=== PATIENT | male | born 1980 | race Caucasian/White ===

== ENCOUNTER 2020-12-20 11:56 | Emergency (ER) | payer MEDICAID, OTHER ==
[~2020-12-20] VITALS: Ht 182.9 cm; Wt 81.0 kg
[~2020-12-20 11:56] MED LIST: GABA-532 PO; ONDA4TAB59 PO
[2020-12-20 12:20] VITALS: BP 159/95
[2020-12-20] MEDS ORDERED: CHLO25CA10 PO (13:33)
[2020-12-20] MEDS ORDERED: ONDA4TAB6 PO (13:33)
[2020-12-20] MEDS ORDERED: ERYT1OIN6 LEFTEYE (13:39)
== END 2020-12-20 14:13 | disposition home or self-care (01) ==
LOC: ER 11:56
DX: Z02.89 Encounter for other administrative examinations (principal); H10.31 Unspecified acute conjunctivitis, right eye; R56.9 Unspecified convulsions; F15.90 Other stimulant use, unspecified, uncomplicated; F11.90 Opioid use, unspecified, uncomplicated; Z86.69 Personal history of other diseases of the nervous system and sense organs; Z72.89 Other problems related to lifestyle; Z56.0 Unemployment, unspecified; Z79.899 Other long term (current) drug therapy
CPT/HCPCS: 99283

== ENCOUNTER 2021-05-01 00:59 | Inpatient (IN) | payer MEDICAID ==
[~2021-05-01] VITALS: Ht 182.9 cm; Wt 57.6 kg
[~2021-05-01 00:59] MED LIST changes: +CHLO25CA10 PO; +ONDA4TAB6 PO
[2021-05-01 02:55] LABS: BASOPHILS # (AUTO) 0.1 X10'3 (0-0.2); BASOPHILS % (AUTO) 1.9 % (0-1); EOSINOPHILS # (AUTO) 0.1 X10'3 (0-0.9); EOSINOPHILS % (AUTO) 2.4 % (0-6); HEMATOCRIT 39.9 % (42.0-52.0); HEMOGLOBIN 13.4 g/dl (14.0-17.9); LYMPHOCYTES % (AUTO) 32.5 % (21-51); MEAN CORPUSCULAR HEMOGLOBIN 30.6 PG (27.0-31.0); MEAN CORPUSCULAR HGB CONC 33.7 g/dL (33.0-36.5); MEAN CORPUSCULAR VOLUME 90.7 FL (78-98); MEAN PLATELET VOLUME 7.5 FL (7.4-10.4); MONOCYTES # (AUTO) 0.3 X10'3 (0-0.9); NEUTROPHILS # (AUTO) 1.7 X10'3 (1.8-7.7); NEUTROPHILS % (AUTO) 54.2 % (42-75); PLATELET COUNT 218 X10'3 (140-440); RED BLOOD COUNT 4.39 X10'6 (4.70-6.10); RED CELL DISTRIBUTION WIDTH 14.6 % (11.5-14.5); WHITE BLOOD COUNT 3.2 X10'3 (4.5-11.0)
[2021-05-01 03:02] LABS: ALBUMIN 3.6 G/DL (3.4-5.0); ANION GAP 10 (8-16); BLOOD UREA NITROGEN 8 MG/DL (7-18); BUN/CREATININE RATIO 8.9 (5.4-32.0); CALCIUM 8.2 MG/DL (8.5-10.1); CHLORIDE 99 MMOL/L (99-107); GLUCOSE 86 MG/DL (70-104); POTASSIUM 3.7 MMOL/L (3.5-5.1); SODIUM 137 MMOL/L (135-145); TOTAL CARBON DIOXIDE 27.8 MMOL/L (24-32); eGFR > 90 ML/MIN
[2021-05-01] MEDS ORDERED: LORazepam 2 mg/ml vial IV ONE ×2 (03:25→05:05)
[2021-05-01] MEDS ORDERED: thiamine 100mg/ml 2ml inj. IV ONE (04:05)
[2021-05-01] MEDS ORDERED: ondansetron/PF 4mg/2ml inj IV ONE (04:40)
[2021-05-01] MEDS ORDERED: magnesium 4gm in 100ml NS 100 ML IV PRN (05:10)
[2021-05-01] MEDS ORDERED: acetaminophen 325mg tablet PO PRN ×2 (05:10)
[2021-05-01] MEDS ORDERED: haloperidol lactate 5mg/ml inj IM PRN (05:10)
[2021-05-01] MEDS ORDERED: normal saline 1000ml 1,000 ML IV SCH (05:10)
[2021-05-01] MEDS ORDERED: haloperidol 5mg tablet PO PRN (05:10)
[2021-05-01] MEDS ORDERED: LORazepam 2 mg/ml vial IV PRN ×3 (05:10→19:05)
[2021-05-01] MEDS ORDERED: magnesium Cl slow-release 64mg tablet PO PRN (05:10)
[2021-05-01] MEDS ORDERED: mag hydrox/Alum hydrox/simeth 30ml oral suspension PO PRN (05:10)
[2021-05-01] MEDS ORDERED: potassium CL 10mEq/100ml bag 100 ML IV PRN (05:10)
[2021-05-01] MEDS ORDERED: potassium Cl 20 mEq SR tablet PO PRN ×2 (05:10)
[2021-05-01] MEDS ORDERED: magnesium hydroxide 30ml (MOM) UD suspension PO PRN (05:10)
[2021-05-01] MEDS ORDERED: ondansetron/PF 4mg/2ml inj IV PRN (05:10)
[2021-05-01] MEDS ORDERED: dextrose 50%-water 50ml dispensing syringe IV PRN (05:10)
[2021-05-01] MEDS ORDERED: magnesium 2GM in 50ml NS 50 ML IV PRN (05:10)
--- NOTE | 2021-05-01 06:20 | NUR ---
Report received from LEONELA Christine; assumed care for patient.
--- NOTE | 2021-05-01 06:35 | NUR ---
Patient resting quietly; appears to be sleeping; even chest rise and fall; no apparent distress.
[2021-05-01] MEDS ORDERED: K and/or MAG REPLACEMENT MC SCH (08:00)
[2021-05-01] MEDS: thiamine 100mg/ml 2ml inj. IV SCH ×3 (10:30→19:16)
[2021-05-01] MEDS: heparin, porcine 5000 units/ml vial SQ SCH ×2 (10:31→19:16)
[2021-05-01] MEDS: folic acid 1mg/0.2ml inj IV SCH (12:46)
[2021-05-01] MEDS ORDERED: ATOR20TA66 PO (18:02)
[2021-05-01] MEDS ORDERED: LISI5TAB22 PO (18:02)
[2021-05-01 18:40] VITALS: BP 136/81
[2021-05-01] MEDS: normal saline 1000ml 1,000 ML IV SCH (19:04)
[2021-05-01] MEDS: LORazepam 2 mg/ml vial IV PRN (19:47)
[2021-05-01] MEDS ORDERED: temazepam 15mg capsule PO PRN (21:00)
[2021-05-01 22:00] VITALS: BP 134/78
[2021-05-02 02:00] VITALS: BP 184/70
[2021-05-02] MEDS: LORazepam 2 mg/ml vial IV PRN ×4 (02:18→08:48)
[2021-05-02 06:00] VITALS: BP 155/90
[2021-05-02 06:02] LABS: BASOPHILS # (AUTO) 0.1 X10'3 (0-0.2); BASOPHILS % (AUTO) 1.4 % (0-1); EOSINOPHILS # (AUTO) 0.1 X10'3 (0-0.9); EOSINOPHILS % (AUTO) 3.4 % (0-6); HEMOGLOBIN 13.8 g/dl (14.0-17.9); LYMPHOCYTES # (AUTO) 1.1 X10'3 (1.1-4.8); LYMPHOCYTES % (AUTO) 28.2 % (21-51); MEAN CORPUSCULAR HEMOGLOBIN 30.9 PG (27.0-31.0); MEAN CORPUSCULAR HGB CONC 33.6 g/dL (33.0-36.5); MEAN CORPUSCULAR VOLUME 91.8 FL (78-98); MONOCYTES # (AUTO) 0.4 X10'3 (0-0.9); NEUTROPHILS # (AUTO) 2.3 X10'3 (1.8-7.7); PLATELET COUNT 211 X10'3 (140-440); RED BLOOD COUNT 4.47 X10'6 (4.70-6.10); RED CELL DISTRIBUTION WIDTH 14.1 % (11.5-14.5); WHITE BLOOD COUNT 3.9 X10'3 (4.5-11.0)
[2021-05-02 06:05] LABS: ALANINE AMINOTRANSFERASE 37 U/L (12-78); ALBUMIN 3.5 G/DL (3.4-5.0); ALBUMIN/GLOBULIN RATIO 1.1 (1.1-1.5); ALKALINE PHOSPHATASE 63 IU/L (46-116); ANION GAP 6 (8-16); ASPARTATE AMINO TRANSFERASE 35 U/L (10-37); BLOOD UREA NITROGEN 10 MG/DL (7-18); BUN/CREATININE RATIO 10.4 (5.4-32.0); CALCIUM 8.3 MG/DL (8.5-10.1); CHLORIDE 101 MMOL/L (99-107); CREATININE 0.96 MG/DL (0.60-1.10); GLUCOSE 82 MG/DL (70-104); MAGNESIUM 1.7 MG/DL (1.5-2.4); POTASSIUM 3.9 MMOL/L (3.5-5.1); SODIUM 139 MMOL/L (135-145); TOTAL CARBON DIOXIDE 31.7 MMOL/L (24-32); TOTAL PROTEIN 6.7 G/DL (6.4-8.2); eGFR 85 ML/MIN
--- NOTE | 2021-05-02 06:19 | NUR ---
Problems reprioritized. Patient report given, questions answered & plan of care reviewed with Nate Addendum: 05/02/21 at 0620 by Abdirahman Son RN Amended: Links added.
[2021-05-02] MEDS: heparin, porcine 5000 units/ml vial SQ SCH (07:37)
[2021-05-02] MEDS: thiamine 100mg/ml 2ml inj. IV SCH ×2 (07:37→13:14)
[2021-05-02] MEDS: normal saline 1000ml 1,000 ML IV SCH (07:38)
[2021-05-02] MEDS: folic acid 1mg/0.2ml inj IV SCH (07:38)
[2021-05-02] MEDS ORDERED: FOLI0.4T6 PO (11:40)
[2021-05-02] MEDS ORDERED: MULT-1219 PO (11:41)
[2021-05-02] MEDS ORDERED: OMEP20CA15 PO (11:41)
[2021-05-02] MEDS ORDERED: THIA50TA10 PO (11:41)
--- NOTE | 2021-05-02 13:03 | NUR ---
Page Sent: PAGER ID: [phone] MESSAGE: [id number]. Delmar Kirby. patient has DC orders, he was under the impression he was getting a referral for [facility]. also wanted an Rx for conjunctivitis. please adv. will send him out once I hear from you
[2021-05-03] MEDS ORDERED: LORazepam 2 mg/ml vial IV PRN ×2 (05:10→19:05)
[2021-05-03] MEDS ORDERED: LORazepam 1 MG tablet PO PRN ×2 (05:10→19:05)
[2021-05-05] MEDS ORDERED: LORazepam 1 MG tablet PO PRN (05:10)
[2021-05-05] MEDS ORDERED: LORazepam 2 mg/ml vial IV PRN (05:10)
== END 2021-05-02 13:40 | disposition home or self-care (01) | DRG 773 ==
LOC: ER 01:01 → UNDOADMIN 05:06 → ED HOLD 05:06 → PCU 3S 07:40 → ED HOLD 07:40 → UNDODISIN 05-02 13:40
PROVIDERS: ADMIT Internal Medicine; ATTEND Family Medicine
DX: F10.231 Alcohol dependence with withdrawal delirium (principal); F11.90 Opioid use, unspecified, uncomplicated; Z20.822 Contact with and (suspected) exposure to COVID-19; Z56.0 Unemployment, unspecified; Z71.41 Alcohol abuse counseling and surveillance of alcoholic
CPT/HCPCS: 36415; 80048; 80053; 83735; 85025; 85610; 87635; 96374; 96375; 99285; C9803; G0378; J1644; J2060; J3411; J3490; J7030

== ENCOUNTER 2021-05-14 04:27 | Emergency (ER) | payer MEDICAID ==
[~2021-05-14] VITALS: Ht 182.9 cm; Wt 83.7 kg
[~2021-05-14 04:27] MED LIST changes: +ATOR20TA66 PO; -CHLO25CA10 PO; +FOLI0.4T6 PO; -GABA-532 PO; +LISI5TAB22 PO; +MULT-1219 PO; +OMEP20CA15 PO; -ONDA4TAB59 PO; -ONDA4TAB6 PO; +THIA50TA10 PO
[2021-05-14 05:11] VITALS: BP 137/93
== END 2021-05-14 11:52 | disposition left against medical advice (07) ==
LOC: ER 04:28
DX: F10.129 Alcohol abuse with intoxication, unspecified (principal); Z53.21 Procedure and treatment not carried out due to patient leaving prior to being seen by health care provider; Y90.9 Presence of alcohol in blood, level not specified

== ENCOUNTER 2021-12-08 09:00 | Inpatient (IN) | payer MEDICAID ==
[~2021-12-08] VITALS: Ht 182.9 cm; Wt 78.0 kg
[~2021-12-08 09:00] MED LIST changes: -FOLI0.4T6 PO
[2021-12-08] MEDS ORDERED: LORazepam 2 mg/ml vial ONE (15:16)
[2021-12-08] MEDS ORDERED: ringers solution, lacted 1,000 ML IV ONE ×2 (15:25→16:55)
[2021-12-08] MEDS ORDERED: normal saline 1000ML IV soln IVB ONE (15:25)
--- NOTE | 2021-12-08 15:25 | NUR ---
RN returned from lunch break. Pt diaphoretic, just had fall, disoriented, restless.
[2021-12-08 15:38] LABS: BASOPHILS # (AUTO) 0.2 X10'3 (0-0.2); BASOPHILS % (AUTO) 1.3 % (0-1); EOSINOPHILS % (AUTO) 0.3 % (0-6); HEMATOCRIT 46.5 % (42.0-52.0); HEMOGLOBIN 14.8 g/dl (14.0-17.9); LYMPHOCYTES # (AUTO) 3.5 X10'3 (1.1-4.8); MEAN CORPUSCULAR HEMOGLOBIN 29.8 PG (27.0-31.0); MEAN CORPUSCULAR HGB CONC 31.9 g/dL (33.0-36.5); MEAN CORPUSCULAR VOLUME 93.5 FL (78-98); MEAN PLATELET VOLUME 7.9 FL (7.4-10.4); MONOCYTES # (AUTO) 0.9 X10'3 (0-0.9); MONOCYTES % (AUTO) 6.3 % (2-12); NEUTROPHILS # (AUTO) 9.9 X10'3 (1.8-7.7); NEUTROPHILS % (AUTO) 68.1 % (42-75); PLATELET COUNT 241 X10'3 (140-440); RED BLOOD COUNT 4.98 X10'6 (4.70-6.10); RED CELL DISTRIBUTION WIDTH 14.7 % (11.5-14.5); WHITE BLOOD COUNT 14.6 X10'3 (4.5-11.0)
[2021-12-08 15:51] LABS: ALANINE AMINOTRANSFERASE 41 U/L (12-78); ALBUMIN 4.3 G/DL (3.4-5.0); ALKALINE PHOSPHATASE 121 IU/L (46-116); ANION GAP 30 (8-16); ASPARTATE AMINO TRANSFERASE 33 U/L (10-37); BILIRUBIN,TOTAL 1.5 MG/DL (0.1-1.0); BLOOD UREA NITROGEN 14 MG/DL (7-18); BUN/CREATININE RATIO 11.2 (5.4-32.0); CALCIUM 9.1 MG/DL (8.5-10.1); CHLORIDE 94 MMOL/L (99-107); CREATININE 1.25 MG/DL (0.60-1.10); ETHANOL < 0.010 GM/DL (0.0-0.010); GLUCOSE 152 MG/DL (70-104); MAGNESIUM 1.9 MG/DL (1.5-2.4); SODIUM 137 MMOL/L (135-145); TOTAL PROTEIN 8.5 G/DL (6.4-8.2); eGFR 63 ML/MIN
[2021-12-08 15:57] LABS: PLATELET ESTIMATE NORMAL; TOTAL CELLS COUNTED 100
[2021-12-08 16:01] LABS: TOTAL CARBON DIOXIDE 13.3 MMOL/L (24-32)
[2021-12-08] MEDS ORDERED: potassium Cl 10 mEq/100mL bag IV ONE (16:15)
[2021-12-08 17:36] LABS: CLARITY,URINE CLEAR (Clear); COLOR,URINE YELLOW (Yellow); GLUCOSE, URINE NEGATIVE (Neg); KETONES,URINE 40 mg/dl (Neg); LEUKOCYTE ESTERASE ,URINE NEGATIVE (Neg); NITRITES, URINE NEGATIVE (Neg); OCCULT BLOOD,URINE MODERATE (Neg); PROTEIN,URINE 100 mg/dl (Neg); UROBILINOGEN,URINE 0.2 E.U/dL (0.2-1.0)
[2021-12-08 17:42] LABS: UA COLLECTION TYPE URINAL
[2021-12-08 17:47] LABS: BACTERIA,URINE NONE SEEN /HPF (Neg); HYALINE CASTS 0-3 /LPF (NEGATIVE); MUCUS STRANDS NONE SEEN /LPF (Neg); RBC,URINE NONE SEEN /HPF (0-2); SQUAMOUS EPITHELIAL CELL,UR FEW /LPF (FEW); WBC,URINE NONE SEEN /HPF (0-4)
[2021-12-08 17:55] LABS: URINE AMPHETAMINE SCREEN NEGATIVE (Neg); URINE BARBITUATE SCREEN NEGATIVE (Neg); URINE BENZODIAZEPINES SCREEN NEGATIVE (Neg); URINE CANNABINOID SCREEN NEGATIVE (Neg); URINE COCAINE SCREEN NEGATIVE (Neg); URINE METHADONE SCREEN NEGATIVE (Neg); URINE OPIATE SCREEN NEGATIVE (Neg); URINE PHENCYCLIDINE SCREEN NEGATIVE (Neg)
[2021-12-08] MEDS ORDERED: folic acid 1mg/0.2ml inj IV ONE (18:20)
[2021-12-08] MEDS ORDERED: dextrose 5%-1/2 normal saline 1,000 ML IV ONE (18:20)
[2021-12-08] MEDS ORDERED: thiamine 100mg/ml 2ml inj. IV ONE (18:20)
--- NOTE | 2021-12-08 23:15 | NUR ---
Patient in room PCU 3027. I have received report from NCIOLLE GIPSON and had the opportunity to ask questions and will assume patient care when patient arrives on the unit.
[2021-12-08 23:45] VITALS: BP 121/60
[2021-12-09] MEDS ORDERED: OMEP20CA16 PO (00:12)
[2021-12-09] MEDS ORDERED: MULT-1085 PO (00:12)
[2021-12-09] MEDS ORDERED: THIA100T66 PO (00:12)
[2021-12-09] MEDS ORDERED: magnesium 4gm in 100ml NS 100 ML IV PRN (00:45)
[2021-12-09] MEDS ORDERED: potassium CL 10mEq/100ml bag 100 ML IV PRN (00:45)
[2021-12-09] MEDS ORDERED: acetaminophen 325mg tablet PO PRN ×2 (00:45)
[2021-12-09] MEDS ORDERED: LORazepam 2 mg/ml vial IV PRN (00:45)
[2021-12-09] MEDS ORDERED: acetaminophen 650mg rectal suppository RC PRN (00:45)
[2021-12-09] MEDS ORDERED: magnesium Cl slow-release 64mg tablet PO PRN (00:45)
[2021-12-09] MEDS ORDERED: magnesium 2GM in 50ml NS 50 ML IV PRN (00:45)
[2021-12-09] MEDS ORDERED: diphenhydrAMINE 25mg capsule PO PRN (00:45)
[2021-12-09] MEDS ORDERED: bisacodyl 10mg suppository rectal RC PRN (00:45)
[2021-12-09] MEDS ORDERED: diphenhydrAMINE 50 mg/ml inj IV PRN (00:45)
[2021-12-09] MEDS ORDERED: magnesium hydroxide 30ml (MOM) UD suspension PO PRN (00:45)
[2021-12-09] MEDS ORDERED: dextrose 50%-water 50ml dispensing syringe IV PRN (00:45)
[2021-12-09] MEDS ORDERED: ondansetron 4mg rapidly disintigrating tab PO PRN (00:45)
[2021-12-09] MEDS ORDERED: mag hydrox/Alum hydrox/simeth 30ml oral suspension PO PRN (00:45)
[2021-12-09] MEDS ORDERED: HYDROcodone/acetaminophen 5mg/325mg tablet PO PRN (00:45)
[2021-12-09] MEDS ORDERED: ondansetron/PF 4mg/2ml inj IV PRN (00:45)
[2021-12-09] MEDS ORDERED: haloperidol lactate 5mg/ml inj IM PRN (00:45)
[2021-12-09] MEDS: morphine 2 MG/ML inj. syringe IV PRN ×4 (01:08→20:48)
[2021-12-09] MEDS: POTASSIUM BICARB 20meq eff tab 20 MEQ TABLET.EFF PO PRN ×3 (01:10→17:20)
[2021-12-09] MEDS: potassium cl 20mEq in 1/2 NS 1,000 ML IV SCH ×3 (02:30→20:45)
[2021-12-09 03:15] LABS: ABG BASE EXCESS 2.8 mmol/L (-2.0-2.0); ABG HCO3 25.5 mmol/L (22.0-26.0); ABG OXYGEN SATURATION 95.3 % (94-97); ABG PCO2 (T) 33.5 mmHg (35.0-48.0); ABG PO2 (T) 73.1 mmHg (75.0-100.0); ALLEN'S TEST POSITIVE; FMetHb 0.4 % (0.0-1.5); TOTAL HEMOGLOBIN 14.1 G/dl (14.0-18.0)
[2021-12-09 06:00] VITALS: BP 152/71
--- NOTE | 2021-12-09 06:22 | NUR ---
Problems reprioritized. Patient report given, questions answered & plan of care reviewed with LARISA GIPSON.
[2021-12-09 06:24] LABS: HEMOGLOBIN A1C 5.4 % (4.5-6.2)
[2021-12-09 06:30] LABS: APTT 29 SECONDS (22-32)
[2021-12-09 07:05] LABS: CREATINE KINASE 636 U/L (39-308); LIPASE 183 U/L (73-393); PHOSPHORUS 2.3 MG/DL (2.3-4.5); POTASSIUM 3.4 MMOL/L (3.5-5.1)
--- NOTE | 2021-12-09 07:08 | NUR ---
Patient in room PCU 3027. I have received report from LEONELA Diaz and had the opportunity to ask questions and assume patient care.
--- NOTE | 2021-12-09 07:59 | NUR ---
Paged Dr Lopez Message: [id number], Kofi, Needs valium steve for [facility] out of Ativan IV. Bhavana, [phone], TY
[2021-12-09] MEDS: thiamine 100mg/ml 2ml inj. IV SCH ×3 (08:06→20:47)
[2021-12-09] MEDS: docusate sod 100mg capsule PO SCH ×2 (08:08→19:13)
[2021-12-09] MEDS: nicotine 21mg patch - 24 hr TD SCH (08:09)
[2021-12-09] MEDS: heparin, porcine 5000 units/ml vial SQ SCH ×2 (08:10→19:13)
[2021-12-09] MEDS: K and/or MAG REPLACEMENT MC SCH ×2 (08:11→19:09)
[2021-12-09] MEDS: folic acid 1mg/0.2ml inj IV SCH (09:23)
--- NOTE | 2021-12-09 10:22 | NUR ---
Wound consult: Per RN/[employer]IMARY [employer]CHO[employer]INCIPAL skin assessment pt with bilat heel blisters and right elbow abrasions. Pending documentation of PO intake on regular diet. Will continue to follow and make recommendations as appropriate pending trends in PO intake. Addendum: 12/09/21 at [address] Amended: Links added.
[2021-12-09 11:32] VITALS: BP 146/85
[2021-12-09 11:57] LABS: ALBUMIN 3.1 G/DL (3.4-5.0); ANION GAP 7 (8-16); BLOOD UREA NITROGEN 7 MG/DL (7-18); CALCIUM 8.2 MG/DL (8.5-10.1); CHLORIDE 99 MMOL/L (99-107); CREATININE 0.78 MG/DL (0.60-1.10); GLUCOSE 95 MG/DL (70-104); POTASSIUM 3.7 MMOL/L (3.5-5.1); SODIUM 137 MMOL/L (135-145); TOTAL CARBON DIOXIDE 30.8 MMOL/L (24-32); eGFR > 90 ML/MIN
[2021-12-09] MEDS: diazepam inj 5 MG/ML inj. IV PRN ×3 (12:03→23:37)
[2021-12-09 17:00] VITALS: BP 166/94
[2021-12-09] MEDS: LIDOcaine Viscous 15ml cup MM PRN (17:20)
[2021-12-09] MEDS: HYDROcodone/acetaminophen 10/325mg tab PO PRN ×2 (17:20→23:38)
--- NOTE | 2021-12-09 17:30 | NUR ---
Pt experienced severe pain throughout the shift, received norco po x2, and morphine IV. Pt having withdrawals, received valium 5 mg IV x1. REceived lidocaine mouth wash, swish and spit, x 1, for severe sores in mouth that occurred when he had seizure in the ED. States the lidocaine made mouth feel better.
[2021-12-09 18:00] VITALS: BP 155/102
--- NOTE | 2021-12-09 18:45 | NUR ---
Problems reprioritized. Patient report given, questions answered & plan of care reviewed with LEONELA Diaz.
[2021-12-09 22:00] VITALS: BP 140/84
[2021-12-10] MEDS: potassium cl 20mEq in 1/2 NS 1,000 ML IV SCH ×3 (00:30→22:12)
[2021-12-10] MEDS: LIDOcaine Viscous 15ml cup MM PRN ×2 (00:33→17:06)
[2021-12-10 02:00] VITALS: BP 153/83
[2021-12-10] MEDS: morphine 2 MG/ML inj. syringe IV PRN ×3 (03:15→20:04)
[2021-12-10] MEDS: diazepam inj 5 MG/ML inj. IV PRN ×3 (05:00→22:12)
[2021-12-10] MEDS: HYDROcodone/acetaminophen 10/325mg tab PO PRN ×3 (05:01→16:59)
[2021-12-10 06:00] VITALS: BP 139/77
[2021-12-10 06:41] LABS: BASOPHILS % (AUTO) 0.6 % (0-1); EOSINOPHILS # (AUTO) 0.2 X10'3 (0-0.9); EOSINOPHILS % (AUTO) 3.9 % (0-6); HEMATOCRIT 39.2 % (42.0-52.0); HEMOGLOBIN 13.4 g/dl (14.0-17.9); LYMPHOCYTES # (AUTO) 1.5 X10'3 (1.1-4.8); LYMPHOCYTES % (AUTO) 24.3 % (21-51); MEAN CORPUSCULAR HEMOGLOBIN 31.1 PG (27.0-31.0); MEAN CORPUSCULAR HGB CONC 34.2 g/dL (33.0-36.5); MEAN PLATELET VOLUME 8.5 FL (7.4-10.4); MONOCYTES # (AUTO) 0.6 X10'3 (0-0.9); MONOCYTES % (AUTO) 9.9 % (2-12); NEUTROPHILS # (AUTO) 3.8 X10'3 (1.8-7.7); NEUTROPHILS % (AUTO) 61.3 % (42-75); PLATELET COUNT 134 X10'3 (140-440); RED BLOOD COUNT 4.31 X10'6 (4.70-6.10); RED CELL DISTRIBUTION WIDTH 13.9 % (11.5-14.5); WHITE BLOOD COUNT 6.2 X10'3 (4.5-11.0)
--- NOTE | 2021-12-10 06:44 | NUR ---
Problems reprioritized. Patient report given, questions answered & plan of care reviewed with LARISA GIPSON.
[2021-12-10 07:03] LABS: ALANINE AMINOTRANSFERASE 34 U/L (12-78); ALBUMIN/GLOBULIN RATIO 0.9 (1.1-1.5); ALKALINE PHOSPHATASE 76 IU/L (46-116); ANION GAP 8 (8-16); ASPARTATE AMINO TRANSFERASE 31 U/L (10-37); BILIRUBIN,TOTAL 0.7 MG/DL (0.1-1.0); BLOOD UREA NITROGEN 8 MG/DL (7-18); BUN/CREATININE RATIO 10.3 (5.4-32.0); CALCIUM 8.2 MG/DL (8.5-10.1); CHLORIDE 100 MMOL/L (99-107); CREATININE 0.78 MG/DL (0.60-1.10); GLUCOSE 130 MG/DL (70-104); MAGNESIUM 1.8 MG/DL (1.5-2.4); POTASSIUM 3.3 MMOL/L (3.5-5.1); SODIUM 137 MMOL/L (135-145); TOTAL CARBON DIOXIDE 29.3 MMOL/L (24-32); TOTAL PROTEIN 6.5 G/DL (6.4-8.2); eGFR > 90 ML/MIN
[2021-12-10] MEDS: K and/or MAG REPLACEMENT MC SCH ×2 (08:00→20:00)
[2021-12-10] MEDS: heparin, porcine 5000 units/ml vial SQ SCH ×2 (08:00→20:05)
[2021-12-10] MEDS: lisinopril 5mg tablet PO SCH (09:28)
[2021-12-10] MEDS: nicotine 21mg patch - 24 hr TD SCH (09:28)
[2021-12-10] MEDS: multivitamins, therapeutics tablet PO SCH (09:28)
[2021-12-10] MEDS: thiamine 100mg/ml 2ml inj. IV SCH ×3 (09:29→20:04)
[2021-12-10] MEDS: docusate sod 100mg capsule PO SCH ×2 (09:29→20:05)
[2021-12-10] MEDS: atorvastatin 20mg tablet PO SCH (09:29)
[2021-12-10] MEDS: pantoprazole 40mg Tablet.DR PO SCH (09:29)
[2021-12-10] MEDS: folic acid 1mg/0.2ml inj IV SCH (09:43)
[2021-12-10 11:00] VITALS: BP 156/94
[2021-12-10] MEDS: POTASSIUM BICARB 20meq eff tab 20 MEQ TABLET.EFF PO PRN ×2 (12:18→16:59)
[2021-12-10] MEDS: haloperidol 5mg tablet PO PRN (12:19)
[2021-12-10 12:38] LABS: CREATINE KINASE 587 U/L (39-308)
[2021-12-10 15:00] VITALS: BP 115/74
--- NOTE | 2021-12-10 16:49 | NUR ---
To Dr Lopez Message: [id number], Kirby, I have not seen order for CT Back we discussed. Bhavana GIPSON, [phone], TY
[2021-12-10] MEDS: lactose-reduced food (Ensure Enlive) - 237ml bottle PO SCH (18:00)
[2021-12-10 20:16] VITALS: BP 146/83
[2021-12-10 22:06] VITALS: BP 146/85
[2021-12-11] VITALS (8 sets, daily range): BP systolic 122–155; BP diastolic 73–88
[2021-12-11] MEDS ORDERED: LORazepam 1 MG tablet PO PRN (00:45)
[2021-12-11] MEDS ORDERED: LORazepam 2 mg/ml vial IV PRN (00:45)
[2021-12-11] MEDS: diazepam inj 5 MG/ML inj. IV PRN ×3 (02:08→17:43)
[2021-12-11] MEDS ORDERED: TADA5TAB2 PO (03:22)
[2021-12-11] MEDS ORDERED: ALBU8.5H17 INH (03:32)
[2021-12-11] MEDS: morphine 2 MG/ML inj. syringe IV PRN ×3 (05:37→22:11)
[2021-12-11 05:49] LABS: BASOPHILS % (AUTO) 0.7 % (0-1); EOSINOPHILS # (AUTO) 0.2 X10'3 (0-0.9); EOSINOPHILS % (AUTO) 3.7 % (0-6); HEMATOCRIT 42.2 % (42.0-52.0); HEMOGLOBIN 14.2 g/dl (14.0-17.9); LYMPHOCYTES # (AUTO) 1.6 X10'3 (1.1-4.8); LYMPHOCYTES % (AUTO) 24.5 % (21-51); MEAN CORPUSCULAR HEMOGLOBIN 30.6 PG (27.0-31.0); MEAN CORPUSCULAR HGB CONC 33.6 g/dL (33.0-36.5); MEAN PLATELET VOLUME 8.4 FL (7.4-10.4); MONOCYTES # (AUTO) 0.7 X10'3 (0-0.9); MONOCYTES % (AUTO) 10.8 % (2-12); NEUTROPHILS # (AUTO) 3.8 X10'3 (1.8-7.7); NEUTROPHILS % (AUTO) 60.3 % (42-75); PLATELET COUNT 145 X10'3 (140-440); RED BLOOD COUNT 4.63 X10'6 (4.70-6.10); WHITE BLOOD COUNT 6.4 X10'3 (4.5-11.0)
[2021-12-11] MEDS: LIDOcaine Viscous 15ml cup MM PRN ×2 (05:54→17:43)
[2021-12-11 05:59] LABS: ALANINE AMINOTRANSFERASE 31 U/L (12-78); ALBUMIN 3.1 G/DL (3.4-5.0); ALBUMIN/GLOBULIN RATIO 0.8 (1.1-1.5); ALKALINE PHOSPHATASE 72 IU/L (46-116); ANION GAP 4 (8-16); ASPARTATE AMINO TRANSFERASE 22 U/L (10-37); BILIRUBIN,TOTAL 0.7 MG/DL (0.1-1.0); BLOOD UREA NITROGEN 7 MG/DL (7-18); BUN/CREATININE RATIO 9.2 (5.4-32.0); CALCIUM 8.7 MG/DL (8.5-10.1); CHLORIDE 99 MMOL/L (99-107); CREATININE 0.76 MG/DL (0.60-1.10); GLUCOSE 106 MG/DL (70-104); PHOSPHORUS 3.4 MG/DL (2.3-4.5); POTASSIUM 3.9 MMOL/L (3.5-5.1); SODIUM 134 MMOL/L (135-145); TOTAL CARBON DIOXIDE 30.9 MMOL/L (24-32); TOTAL PROTEIN 6.8 G/DL (6.4-8.2); eGFR > 90 ML/MIN
--- NOTE | 2021-12-11 06:40 | NUR ---
Problems reprioritized. Patient report given, questions answered & plan of care reviewed with LEONELA Bateman.
[2021-12-11] MEDS: HYDROcodone/acetaminophen 10/325mg tab PO PRN ×3 (07:58→18:46)
[2021-12-11] MEDS: K and/or MAG REPLACEMENT MC SCH ×2 (08:00→20:00)
[2021-12-11] MEDS: lactose-reduced food (Ensure Enlive) - 237ml bottle PO SCH ×3 (08:00→18:49)
[2021-12-11] MEDS: potassium cl 20mEq in 1/2 NS 1,000 ML IV SCH ×2 (09:00→18:47)
[2021-12-11] MEDS: pantoprazole 40mg Tablet.DR PO SCH (09:01)
[2021-12-11] MEDS: heparin, porcine 5000 units/ml vial SQ SCH ×2 (09:01→19:02)
[2021-12-11] MEDS: multivitamins, therapeutics tablet PO SCH (09:02)
[2021-12-11] MEDS: lisinopril 5mg tablet PO SCH (09:02)
[2021-12-11] MEDS: docusate sod 100mg capsule PO SCH ×2 (09:02→19:02)
[2021-12-11] MEDS: atorvastatin 20mg tablet PO SCH (09:02)
[2021-12-11] MEDS: thiamine 100mg/ml 2ml inj. IV SCH ×2 (09:03→12:12)
[2021-12-11] MEDS: folic acid 1mg/0.2ml inj IV SCH (09:03)
[2021-12-11] MEDS: nicotine 21mg patch - 24 hr TD SCH (09:03)
--- NOTE | 2021-12-11 10:39 | NUR ---
Met with patient in regards to alcohol use and to see if patient was interested in resources for treatment options. Patient is interested in treatment options. I gave patient [facility] number to call and get process started. I also gave a list of resources and my card to call me with any questions.
--- NOTE | 2021-12-11 17:45 | NUR ---
Pt continues to experience pain and withdrawals. Pt given morphine IV 2x this shift, [place] 10 PO 2x this shift, and valium 5 mg IV x2 for withdrawals, scoring >10 on assessment, but <15.
--- NOTE | 2021-12-11 18:42 | NUR ---
Problems reprioritized. Patient report given, questions answered & plan of care reviewed with LEONELA Ulloa. At 1755 pt HR increased to 130's, checked on patient, pt has been on the phone dealing with personal issues. He was also moving in bed, sitting up to eat dinner. continues to have pain, increasing with movement.
[2021-12-11] MEDS: haloperidol 5mg tablet PO PRN (19:46)
--- NOTE | 2021-12-11 21:54 | NUR ---
Dr Melendez ordered patient's albuterol sulfate for wheezing PRN as per the patient's reported Med Rec.
[2021-12-11] MEDS ORDERED: ALBUTEROL INHALER 1 PUFF/90 MCG INHALation IH PRN (21:55)
[2021-12-11] MEDS ORDERED: albuterol 2.5 MG/3 ML nebule NEB PRN (22:00)
[2021-12-12] VITALS (7 sets, daily range): BP systolic 115–147; BP diastolic 64–94
[2021-12-12] MEDS: diazepam inj 5 MG/ML inj. IV PRN (01:13)
[2021-12-12] MEDS: thiamine 100mg/ml 2ml inj. IV SCH (01:25)
--- NOTE | 2021-12-12 01:25 | NUR ---
sPOKE WITH PHARMACIST OK TO GIVE THIAMINE NOW THAT WAS SCHEDULED FOR 2100
[2021-12-12] MEDS: haloperidol 5mg tablet PO PRN (04:37)
[2021-12-12] MEDS: potassium cl 20mEq in 1/2 NS 1,000 ML IV SCH ×2 (05:03→21:46)
[2021-12-12 06:42] LABS: BASOPHILS % (AUTO) 0.7 % (0-1); EOSINOPHILS # (AUTO) 0.2 X10'3 (0-0.9); EOSINOPHILS % (AUTO) 4.1 % (0-6); HEMATOCRIT 41.7 % (42.0-52.0); LYMPHOCYTES # (AUTO) 1.4 X10'3 (1.1-4.8); LYMPHOCYTES % (AUTO) 23.8 % (21-51); MEAN CORPUSCULAR HEMOGLOBIN 30.5 PG (27.0-31.0); MEAN CORPUSCULAR HGB CONC 33.5 g/dL (33.0-36.5); MEAN CORPUSCULAR VOLUME 91.2 FL (78-98); MEAN PLATELET VOLUME 8.1 FL (7.4-10.4); MONOCYTES # (AUTO) 0.9 X10'3 (0-0.9); MONOCYTES % (AUTO) 14.2 % (2-12); NEUTROPHILS # (AUTO) 3.5 X10'3 (1.8-7.7); NEUTROPHILS % (AUTO) 57.2 % (42-75); PLATELET COUNT 153 X10'3 (140-440); RED BLOOD COUNT 4.57 X10'6 (4.70-6.10); RED CELL DISTRIBUTION WIDTH 14.3 % (11.5-14.5); WHITE BLOOD COUNT 6.1 X10'3 (4.5-11.0)
--- NOTE | 2021-12-12 06:45 | NUR ---
Problems reprioritized. Patient report given, questions answered & plan of care reviewed with LEONELA Robles.
--- NOTE | 2021-12-12 06:46 | NUR ---
Patient in room PCU 3027. I have received report from jessica lazo and had the opportunity to ask questions and assume patient care.
[2021-12-12 06:55] LABS: ALANINE AMINOTRANSFERASE 34 U/L (12-78); ALBUMIN 3.2 G/DL (3.4-5.0); ALBUMIN/GLOBULIN RATIO 0.8 (1.1-1.5); ALKALINE PHOSPHATASE 75 IU/L (46-116); ANION GAP 7 (8-16); ASPARTATE AMINO TRANSFERASE 25 U/L (10-37); BILIRUBIN,TOTAL 0.5 MG/DL (0.1-1.0); BLOOD UREA NITROGEN 10 MG/DL (7-18); BUN/CREATININE RATIO 11.1 (5.4-32.0); CHLORIDE 100 MMOL/L (99-107); GLUCOSE 103 MG/DL (70-104); MAGNESIUM 1.9 MG/DL (1.5-2.4); PHOSPHORUS 4.8 MG/DL (2.3-4.5); POTASSIUM 3.9 MMOL/L (3.5-5.1); SODIUM 137 MMOL/L (135-145); TOTAL CARBON DIOXIDE 30.4 MMOL/L (24-32); eGFR > 90 ML/MIN
[2021-12-12] MEDS: K and/or MAG REPLACEMENT MC SCH ×2 (07:46→20:00)
[2021-12-12] MEDS: pantoprazole 40mg Tablet.DR PO SCH (07:52)
[2021-12-12] MEDS: multivitamins, therapeutics tablet PO SCH (07:52)
[2021-12-12] MEDS: atorvastatin 20mg tablet PO SCH (07:52)
[2021-12-12] MEDS: docusate sod 100mg capsule PO SCH ×2 (07:52→20:00)
[2021-12-12] MEDS: nicotine 21mg patch - 24 hr TD SCH (07:53)
[2021-12-12] MEDS: lisinopril 5mg tablet PO SCH (07:53)
[2021-12-12] MEDS: heparin, porcine 5000 units/ml vial SQ SCH ×2 (07:53→21:44)
[2021-12-12] MEDS: HYDROcodone/acetaminophen 10/325mg tab PO PRN ×4 (07:57→21:47)
[2021-12-12] MEDS: lactose-reduced food (Ensure Enlive) - 237ml bottle PO SCH ×3 (07:59→18:30)
[2021-12-12] MEDS: morphine 2 MG/ML inj. syringe IV PRN (13:59)
[2021-12-12] MEDS: LIDOcaine Viscous 15ml cup MM PRN (17:23)
--- NOTE | 2021-12-12 18:31 | NUR ---
Problems reprioritized. Patient report given, questions answered & plan of care reviewed with jessica lazo.
[2021-12-13] VITALS (7 sets, daily range): BP systolic 99–146; BP diastolic 50–91
[2021-12-13] MEDS ORDERED: LORazepam 2 mg/ml vial IV PRN (00:45)
[2021-12-13] MEDS ORDERED: LORazepam 1 MG tablet PO PRN (00:45)
[2021-12-13] MEDS: HYDROcodone/acetaminophen 10/325mg tab PO PRN ×4 (04:02→20:21)
[2021-12-13] MEDS: potassium cl 20mEq in 1/2 NS 1,000 ML IV SCH ×2 (04:45→05:41)
[2021-12-13 05:51] LABS: BASOPHILS # (AUTO) 0.1 X10'3 (0-0.2); EOSINOPHILS # (AUTO) 0.3 X10'3 (0-0.9); EOSINOPHILS % (AUTO) 4.3 % (0-6); HEMATOCRIT 42.4 % (42.0-52.0); HEMOGLOBIN 14.3 g/dl (14.0-17.9); LYMPHOCYTES % (AUTO) 30.4 % (21-51); MEAN CORPUSCULAR HEMOGLOBIN 30.5 PG (27.0-31.0); MEAN CORPUSCULAR HGB CONC 33.7 g/dL (33.0-36.5); MEAN CORPUSCULAR VOLUME 90.5 FL (78-98); MEAN PLATELET VOLUME 8.3 FL (7.4-10.4); MONOCYTES # (AUTO) 1.1 X10'3 (0-0.9); MONOCYTES % (AUTO) 17.1 % (2-12); NEUTROPHILS # (AUTO) 3.1 X10'3 (1.8-7.7); NEUTROPHILS % (AUTO) 47.2 % (42-75); PLATELET COUNT 166 X10'3 (140-440); RED BLOOD COUNT 4.69 X10'6 (4.70-6.10); RED CELL DISTRIBUTION WIDTH 14.1 % (11.5-14.5); WHITE BLOOD COUNT 6.6 X10'3 (4.5-11.0)
[2021-12-13 06:06] LABS: ALANINE AMINOTRANSFERASE 35 U/L (12-78); ALBUMIN 3.1 G/DL (3.4-5.0); ALBUMIN/GLOBULIN RATIO 0.8 (1.1-1.5); ALKALINE PHOSPHATASE 80 IU/L (46-116); ANION GAP 6 (8-16); ASPARTATE AMINO TRANSFERASE 22 U/L (10-37); BILIRUBIN,TOTAL 0.3 MG/DL (0.1-1.0); BLOOD UREA NITROGEN 12 MG/DL (7-18); CALCIUM 9.1 MG/DL (8.5-10.1); CHLORIDE 100 MMOL/L (99-107); CREATININE 0.86 MG/DL (0.60-1.10); GLUCOSE 108 MG/DL (70-104); PHOSPHORUS 5.1 MG/DL (2.3-4.5); POTASSIUM 4.6 MMOL/L (3.5-5.1); SODIUM 136 MMOL/L (135-145); TOTAL CARBON DIOXIDE 29.6 MMOL/L (24-32); TOTAL PROTEIN 6.9 G/DL (6.4-8.2); eGFR > 90 ML/MIN
[2021-12-13 06:34] LABS: PLATELET ESTIMATE NORMAL; TOTAL CELLS COUNTED 100
--- NOTE | 2021-12-13 07:45 | NUR ---
Problems reprioritized. Patient report given, questions answered & plan of care reviewed with LEONELA Jean Baptiste.
[2021-12-13] MEDS: lactose-reduced food (Ensure Enlive) - 237ml bottle PO SCH (08:00)
[2021-12-13] MEDS: K and/or MAG REPLACEMENT MC SCH ×2 (08:00→20:00)
[2021-12-13] MEDS: heparin, porcine 5000 units/ml vial SQ SCH ×2 (08:00→20:00)
[2021-12-13 08:29] LABS: APTT 26 SECONDS (22-32)
[2021-12-13 08:30] LABS: ALBUMIN 3.2 G/DL (3.4-5.0); ANION GAP 8 (8-16); BLOOD UREA NITROGEN 12 MG/DL (7-18); BUN/CREATININE RATIO 14.8 (5.4-32.0); CALCIUM 8.8 MG/DL (8.5-10.1); CHLORIDE 101 MMOL/L (99-107); CREATININE 0.81 MG/DL (0.60-1.10); GLUCOSE 103 MG/DL (70-104); POTASSIUM 4.5 MMOL/L (3.5-5.1); SODIUM 137 MMOL/L (135-145); eGFR > 90 ML/MIN
--- NOTE | 2021-12-13 08:37 | NUR ---
Patient in room PCU 3027. I have received report from LEONELA TA, and had the opportunity to ask questions and assume patient care.
[2021-12-13] MEDS: nicotine 21mg patch - 24 hr TD SCH (09:44)
[2021-12-13] MEDS: folic acid 1mg tablet PO SCH (09:46)
[2021-12-13] MEDS: pantoprazole 40mg Tablet.DR PO SCH (09:47)
[2021-12-13] MEDS: thiamine 100mg tablet PO SCH (09:47)
[2021-12-13] MEDS: lisinopril 5mg tablet PO SCH (09:48)
[2021-12-13] MEDS: multivitamins, therapeutics tablet PO SCH (09:48)
[2021-12-13] MEDS: atorvastatin 20mg tablet PO SCH (09:48)
[2021-12-13] MEDS: docusate sod 100mg capsule PO SCH ×2 (09:49→20:20)
--- NOTE | 2021-12-13 13:27 | NUR ---
PAGE SENT Message: [id number], CAMILLE RODRIGUEZ, TODAY'S DR IN [place] DOESN'T PERFORM KYHOPLATY/VERTEBROPLASTY, NOR DO THEY HAVE THE "KIT", UNCERTAIN WHEN KIT WILL ARRIVE. YULISSA . THANK YOU, JYOTI [phone]
--- NOTE | 2021-12-13 13:36 | NUR ---
Initial: Pt admit for EtOH w/d. Currently receiving routine Thiamine, Folic acid, and MVI. Pt on a regular diet and eating well, documented with 75-100% PO intake since dinner 12/09. Noted pt receiving an Ensure Enlive TID and with 100% PO intake however ONS not warranted as pt is meeting estimated nutrient needs with PO intake of meals alone. Attempted to d/w RN however RN unavailable, message left with another RN with recommendation to discontinue ONS. LBM 12/12. No nutrition intervention implemented at this time. Will continue to follow. Recommendations: 1) Continue regular diet 2) Discontinue ONS as pt meeting estimated nutrient needs with PO intake of meals; can offer additional food on trays for satiety if needed 3) Continue routine Thiamine, Folic acid, and MVI in view of EtOH hx 4) Routine bowel care 5) Weekly scaled weights Addendum: 12/13/21 at [address] Amended: Links added.
--- NOTE | 2021-12-13 18:35 | NUR ---
Problems reprioritized. Patient report given, questions answered & plan of care reviewed with LEONELA ARECHIGA.
[2021-12-13] MEDS: LIDOcaine Viscous 15ml cup MM PRN (20:18)
--- NOTE | 2021-12-13 21:00 | NUR ---
Patient endorsement received from Traveler LEONELA Lopez, no respiratory distress noted. Will continue to monitor for any changes.
[2021-12-14] MEDS: potassium cl 20mEq in 1/2 NS 1,000 ML IV SCH ×3 (01:24→21:28)
[2021-12-14 02:00] VITALS: BP 141/83
[2021-12-14] MEDS: morphine 2 MG/ML inj. syringe IV PRN ×5 (02:13→21:06)
[2021-12-14 05:56] LABS: BASOPHILS # (AUTO) 0.1 X10'3 (0-0.2); BASOPHILS % (AUTO) 1.2 % (0-1); EOSINOPHILS # (AUTO) 0.3 X10'3 (0-0.9); EOSINOPHILS % (AUTO) 4.1 % (0-6); HEMATOCRIT 43.6 % (42.0-52.0); HEMOGLOBIN 14.6 g/dl (14.0-17.9); LYMPHOCYTES # (AUTO) 2.2 X10'3 (1.1-4.8); LYMPHOCYTES % (AUTO) 29.2 % (21-51); MEAN CORPUSCULAR HEMOGLOBIN 30.5 PG (27.0-31.0); MEAN CORPUSCULAR HGB CONC 33.6 g/dL (33.0-36.5); MEAN CORPUSCULAR VOLUME 90.9 FL (78-98); MEAN PLATELET VOLUME 8.2 FL (7.4-10.4); MONOCYTES # (AUTO) 1.4 X10'3 (0-0.9); MONOCYTES % (AUTO) 18.6 % (2-12); NEUTROPHILS # (AUTO) 3.5 X10'3 (1.8-7.7); NEUTROPHILS % (AUTO) 46.9 % (42-75); PLATELET COUNT 192 X10'3 (140-440); RED BLOOD COUNT 4.79 X10'6 (4.70-6.10); RED CELL DISTRIBUTION WIDTH 14.2 % (11.5-14.5); WHITE BLOOD COUNT 7.5 X10'3 (4.5-11.0)
[2021-12-14 06:00] VITALS: BP 111/70
[2021-12-14 06:04] LABS: ALANINE AMINOTRANSFERASE 34 U/L (12-78); ALBUMIN 3.3 G/DL (3.4-5.0); ALBUMIN/GLOBULIN RATIO 0.9 (1.1-1.5); ALKALINE PHOSPHATASE 77 IU/L (46-116); ANION GAP 5 (8-16); ASPARTATE AMINO TRANSFERASE 24 U/L (10-37); BILIRUBIN,TOTAL 0.4 MG/DL (0.1-1.0); BLOOD UREA NITROGEN 13 MG/DL (7-18); BUN/CREATININE RATIO 17.1 (5.4-32.0); CALCIUM 8.9 MG/DL (8.5-10.1); CHLORIDE 100 MMOL/L (99-107); CREATININE 0.76 MG/DL (0.60-1.10); GLUCOSE 103 MG/DL (70-104); PHOSPHORUS 4.1 MG/DL (2.3-4.5); SODIUM 134 MMOL/L (135-145); TOTAL CARBON DIOXIDE 29.4 MMOL/L (24-32); TOTAL PROTEIN 7.1 G/DL (6.4-8.2); eGFR > 90 ML/MIN
[2021-12-14] MEDS: K and/or MAG REPLACEMENT MC SCH ×2 (08:40→20:50)
[2021-12-14] MEDS: docusate sod 100mg capsule PO SCH ×2 (08:48→21:02)
[2021-12-14] MEDS: folic acid 1mg tablet PO SCH (08:48)
[2021-12-14] MEDS: HYDROcodone/acetaminophen 10/325mg tab PO PRN (08:48)
[2021-12-14] MEDS: thiamine 100mg tablet PO SCH (08:48)
[2021-12-14] MEDS: pantoprazole 40mg Tablet.DR PO SCH (08:48)
[2021-12-14] MEDS: lisinopril 5mg tablet PO SCH (08:49)
[2021-12-14] MEDS: atorvastatin 20mg tablet PO SCH (08:49)
[2021-12-14] MEDS: multivitamins, therapeutics tablet PO SCH (08:49)
[2021-12-14] MEDS: heparin, porcine 5000 units/ml vial SQ SCH ×2 (08:50→21:03)
[2021-12-14] MEDS: nicotine 21mg patch - 24 hr TD SCH (08:50)
[2021-12-14] MEDS: HYDROcodone/acetaminophen 10/325mg tab PO SCH ×4 (11:07→23:21)
[2021-12-14 13:13] VITALS: BP 100/67
[2021-12-14 15:57] VITALS: BP 99/57
[2021-12-14 18:00] VITALS: BP 114/68
[2021-12-14 22:00] VITALS: BP 144/62
[2021-12-15] MEDS: morphine 2 MG/ML inj. syringe IV PRN ×6 (01:05→22:15)
[2021-12-15] MEDS: HYDROcodone/acetaminophen 10/325mg tab PO SCH ×5 (03:19→20:09)
[2021-12-15 06:00] VITALS: BP 106/58
[2021-12-15] MEDS: potassium cl 20mEq in 1/2 NS 1,000 ML IV SCH ×2 (06:45→13:31)
--- NOTE | 2021-12-15 07:00 | NUR ---
Doctor Josephine informed of patient's temp at 101.1 and HR- 119. He adviced to encourage patient to use incentive spironmetry (I/S). Patient was taught how to use I/S and has demonstrated well how to use the I/S. Patient given [place] for pain.
[2021-12-15] MEDS: K and/or MAG REPLACEMENT MC SCH ×2 (08:00→20:14)
[2021-12-15] MEDS: pantoprazole 40mg Tablet.DR PO SCH (08:36)
[2021-12-15] MEDS: docusate sod 100mg capsule PO SCH ×2 (08:36→20:09)
[2021-12-15] MEDS: thiamine 100mg tablet PO SCH (08:37)
[2021-12-15] MEDS: multivitamins, therapeutics tablet PO SCH (08:37)
[2021-12-15] MEDS: folic acid 1mg tablet PO SCH (08:37)
[2021-12-15] MEDS: atorvastatin 20mg tablet PO SCH (08:37)
[2021-12-15] MEDS: heparin, porcine 5000 units/ml vial SQ SCH ×2 (08:38→20:09)
[2021-12-15] MEDS: lisinopril 5mg tablet PO SCH (08:38)
[2021-12-15] MEDS: nicotine 21mg patch - 24 hr TD SCH (08:51)
[2021-12-15 09:57] LABS: BASOPHILS # (AUTO) 0.1 X10'3 (0-0.2); BASOPHILS % (AUTO) 0.9 % (0-1); EOSINOPHILS % (AUTO) 0.5 % (0-6); HEMATOCRIT 38.9 % (42.0-52.0); HEMOGLOBIN 13.4 g/dl (14.0-17.9); LYMPHOCYTES # (AUTO) 0.6 X10'3 (1.1-4.8); LYMPHOCYTES % (AUTO) 10.4 % (21-51); MEAN CORPUSCULAR HGB CONC 34.4 g/dL (33.0-36.5); MEAN CORPUSCULAR VOLUME 90.2 FL (78-98); MEAN PLATELET VOLUME 7.9 FL (7.4-10.4); MONOCYTES # (AUTO) 0.7 X10'3 (0-0.9); MONOCYTES % (AUTO) 12.4 % (2-12); NEUTROPHILS # (AUTO) 4.1 X10'3 (1.8-7.7); NEUTROPHILS % (AUTO) 75.8 % (42-75); PLATELET COUNT 160 X10'3 (140-440); RED BLOOD COUNT 4.32 X10'6 (4.70-6.10); RED CELL DISTRIBUTION WIDTH 13.8 % (11.5-14.5); WHITE BLOOD COUNT 5.4 X10'3 (4.5-11.0)
[2021-12-15 10:08] LABS: ALANINE AMINOTRANSFERASE 30 U/L (12-78); ALBUMIN/GLOBULIN RATIO 0.8 (1.1-1.5); ALKALINE PHOSPHATASE 70 IU/L (46-116); ANION GAP 7 (8-16); ASPARTATE AMINO TRANSFERASE 15 U/L (10-37); BILIRUBIN,TOTAL 0.4 MG/DL (0.1-1.0); BLOOD UREA NITROGEN 12 MG/DL (7-18); CALCIUM 8.4 MG/DL (8.5-10.1); CHLORIDE 96 MMOL/L (99-107); GLUCOSE 103 MG/DL (70-104); MAGNESIUM 1.5 MG/DL (1.5-2.4); SODIUM 129 MMOL/L (135-145); TOTAL CARBON DIOXIDE 26.3 MMOL/L (24-32); TOTAL PROTEIN 6.6 G/DL (6.4-8.2); eGFR 82 ML/MIN
[2021-12-15 11:53] VITALS: BP 136/78
--- NOTE | 2021-12-15 11:53 | NUR ---
Doctor Burton informed of patient's temp at 102.5 and HR-115. Patient given cooling cares. Will continue to monitor. Patient's labs were drawn.
[2021-12-15 14:53] VITALS: BP 132/82
[2021-12-15 16:05] VITALS: BP 101/54
--- NOTE | 2021-12-15 16:05 | NUR ---
Doctor Josephine paged and informed of patient's temp at 103.0 and HR-114. He was also informed of patient's right hand AC old IV site that appears to be red, and swellen and warm. IVL was removed and new IVL placed on left hand. Patient was started on IV antibiotics.
[2021-12-15 18:00] VITALS: BP 97/64
[2021-12-15] MEDS: ceFAZolin/D5W- 1GM premix 50 ML IV SCH (18:06)
[2021-12-15 22:00] VITALS: BP 114/51
[2021-12-16 02:00] VITALS: BP 109/60
[2021-12-16] MEDS: morphine 2 MG/ML inj. syringe IV PRN ×6 (02:16→23:17)
[2021-12-16] MEDS: HYDROcodone/acetaminophen 10/325mg tab PO SCH ×3 (04:14→09:07)
[2021-12-16 06:00] VITALS: BP 130/64
[2021-12-16] MEDS: LIDOcaine Viscous 15ml cup MM PRN (06:54)
--- NOTE | 2021-12-16 07:24 | NUR ---
Doctor Josephine was paged and informed of patient's right arm redness and swelling. That was an old IVL site. Patient on IV antibiotics.
[2021-12-16] MEDS: nicotine 21mg patch - 24 hr TD SCH (08:00)
[2021-12-16] MEDS: K and/or MAG REPLACEMENT MC SCH ×2 (08:00→20:21)
[2021-12-16] MEDS: folic acid 1mg tablet PO SCH (09:07)
[2021-12-16] MEDS: docusate sod 100mg capsule PO SCH ×2 (09:08→19:23)
[2021-12-16] MEDS: atorvastatin 20mg tablet PO SCH (09:08)
[2021-12-16] MEDS: lisinopril 5mg tablet PO SCH (09:08)
[2021-12-16] MEDS: multivitamins, therapeutics tablet PO SCH (09:09)
[2021-12-16] MEDS: thiamine 100mg tablet PO SCH (09:09)
[2021-12-16] MEDS: heparin, porcine 5000 units/ml vial SQ SCH ×2 (09:09→19:24)
[2021-12-16] MEDS: ceFAZolin/D5W- 1GM premix 50 ML IV SCH ×4 (09:16→23:17)
[2021-12-16] MEDS: pantoprazole 40mg Tablet.DR PO SCH (09:16)
[2021-12-16 11:33] VITALS: BP 124/67
[2021-12-16] MEDS: oxyCODONE/APAP 5-325mg tablet PO SCH ×3 (13:22→21:00)
[2021-12-16 15:48] VITALS: BP 107/60
[2021-12-16 18:00] VITALS: BP 119/69
[2021-12-16 22:00] VITALS: BP 96/58
[2021-12-17] MEDS: oxyCODONE/APAP 5-325mg tablet PO SCH ×5 (00:57→16:45)
[2021-12-17 02:00] VITALS: BP 107/64
[2021-12-17] MEDS: morphine 2 MG/ML inj. syringe IV PRN (03:14)
[2021-12-17 06:00] VITALS: BP 122/59
[2021-12-17] MEDS: K and/or MAG REPLACEMENT MC SCH ×2 (08:00→20:00)
[2021-12-17] MEDS: nicotine 21mg patch - 24 hr TD SCH (08:00)
[2021-12-17] MEDS: multivitamins, therapeutics tablet PO SCH (08:09)
[2021-12-17] MEDS: pantoprazole 40mg Tablet.DR PO SCH (08:10)
[2021-12-17] MEDS: atorvastatin 20mg tablet PO SCH (08:10)
[2021-12-17] MEDS: ceFAZolin/D5W- 1GM premix 50 ML IV SCH ×2 (08:10→16:45)
[2021-12-17] MEDS: docusate sod 100mg capsule PO SCH ×2 (08:10→20:51)
[2021-12-17] MEDS: folic acid 1mg tablet PO SCH (08:10)
[2021-12-17] MEDS: lisinopril 5mg tablet PO SCH (08:10)
[2021-12-17] MEDS: thiamine 100mg tablet PO SCH (08:10)
[2021-12-17] MEDS: heparin, porcine 5000 units/ml vial SQ SCH ×2 (08:11→20:48)
[2021-12-17 11:00] VITALS: BP 118/66
[2021-12-17] MEDS: OXYcodone (OXYCONTIN) Ext Release 15 MG TAB.SR.12H PO SCH ×2 (11:24→20:55)
[2021-12-17 15:00] VITALS: BP 136/70
[2021-12-17 18:00] VITALS: BP 135/57
[2021-12-17] MEDS ORDERED: oxyCODONE/APAP 10/325mg tablet PO PRN (23:25)
[2021-12-17] MEDS ORDERED: oxyCODONE IR 5mg (immed. release) tablet PO PRN (23:45)
[2021-12-18] VITALS (7 sets, daily range): BP systolic 106–145; BP diastolic 56–91
[2021-12-18] MEDS: ceFAZolin/D5W- 1GM premix 50 ML IV SCH ×4 (00:13→23:23)
[2021-12-18] MEDS: oxyCODONE/APAP 5-325mg tablet PO PRN ×4 (00:14→19:05)
[2021-12-18] MEDS: morphine 2 MG/ML inj. syringe IV PRN ×2 (04:24→23:27)
[2021-12-18] MEDS: thiamine 100mg tablet PO SCH (07:47)
[2021-12-18] MEDS: folic acid 1mg tablet PO SCH (07:47)
[2021-12-18] MEDS: docusate sod 100mg capsule PO SCH ×2 (07:47→19:50)
[2021-12-18] MEDS: atorvastatin 20mg tablet PO SCH (07:47)
[2021-12-18] MEDS: multivitamins, therapeutics tablet PO SCH (07:47)
[2021-12-18] MEDS: heparin, porcine 5000 units/ml vial SQ SCH ×2 (07:47→19:48)
[2021-12-18] MEDS: pantoprazole 40mg Tablet.DR PO SCH (07:47)
[2021-12-18] MEDS: lisinopril 5mg tablet PO SCH (07:48)
[2021-12-18] MEDS: nicotine 21mg patch - 24 hr TD SCH (07:55)
[2021-12-18] MEDS ORDERED: OXYcodone (OXYCONTIN) Ext Release 15 MG TAB.SR.12H PO SCH (08:00)
[2021-12-18] MEDS: K and/or MAG REPLACEMENT MC SCH ×2 (08:00→20:00)
[2021-12-18] MEDS: OXYcodone (OXYCONTIN) Ext Release 15 MG TAB.SR.12H PO SCH ×2 (11:58→19:50)
[2021-12-18] MEDS: LIDOcaine Viscous 15ml cup MM PRN (13:27)
--- NOTE | 2021-12-18 15:43 | NUR ---
report called to LEONELA Pettit for pt. transfer to ortho unit. Pt. belongings secured.
--- NOTE | 2021-12-18 16:17 | NUR ---
Patient in room ORTHO 4024. I have received report from matty GIPSON and had the opportunity to ask questions and assume patient care.
[2021-12-18] MEDS: cyclobenzaprine 10mg tablet PO PRN (16:53)
--- NOTE | 2021-12-18 18:30 | NUR ---
patient given flexeril for muscle spasms in back. Report given to Marva GIPSON
[2021-12-19] MEDS: oxyCODONE/APAP 5-325mg tablet PO PRN ×4 (02:19→22:16)
[2021-12-19 06:00] VITALS: BP 99/50
--- NOTE | 2021-12-19 06:26 | NUR ---
Problems reprioritized. Patient report given, questions answered & plan of care reviewed with clifton Ayon.
--- NOTE | 2021-12-19 06:46 | NUR ---
Patient in room ORTHO 4022. I have received report from Marva and had the opportunity to ask questions and assume patient care.
[2021-12-19] MEDS: K and/or MAG REPLACEMENT MC SCH ×2 (07:34→20:00)
[2021-12-19] MEDS: folic acid 1mg tablet PO SCH (07:48)
[2021-12-19] MEDS: docusate sod 100mg capsule PO SCH ×2 (07:48→19:52)
[2021-12-19] MEDS: thiamine 100mg tablet PO SCH (07:49)
[2021-12-19] MEDS: OXYcodone (OXYCONTIN) Ext Release 15 MG TAB.SR.12H PO SCH (07:49)
[2021-12-19] MEDS: lisinopril 5mg tablet PO SCH (07:49)
[2021-12-19] MEDS: multivitamins, therapeutics tablet PO SCH (07:49)
[2021-12-19] MEDS: pantoprazole 40mg Tablet.DR PO SCH (07:49)
[2021-12-19] MEDS: atorvastatin 20mg tablet PO SCH (07:49)
[2021-12-19] MEDS: nicotine 21mg patch - 24 hr TD SCH (07:50)
[2021-12-19] MEDS: heparin, porcine 5000 units/ml vial SQ SCH ×2 (07:50→19:55)
--- NOTE | 2021-12-19 08:13 | NUR ---
Reassessment: Pt PO fluctuating ~60% avg meals past 3 days w/ 13-25% 12/15 up to 75-100% at times overall partially meeting needs. Pt now w/ cellulitis in addition to 12/09 pain only improving yesterday per MD note. Pain likely impacting PO trends. Ensure Enlive stopped per EMR. Will add smoothies TIDWM to assist meeting kcal/protein needs; dietary notified. Noted last labs 12/15 serum Na 129; RD d/w RN regarding updated labs if MD agreeable. LBM 12/17 on physical assessment but last number BM documented 12/14 per EMR; unsure accuracy though pt is receiving routine colace. Will continue to monitor. Recommendations: 1) Continue regular diet; encourage PO 2) smoothies TIDWM 3) Continue routine Thiamine, Folic acid, and MVI in view of EtOH hx 4) Routine bowel care 5) Weekly scaled weights Addendum: 12/19/21 at [address] Amended: Links added.
[2021-12-19] MEDS: ceFAZolin/D5W- 1GM premix 50 ML IV SCH ×3 (08:40→23:23)
[2021-12-19 09:33] LABS: BASOPHILS # (AUTO) 0.1 X10'3 (0-0.2); BASOPHILS % (AUTO) 1.8 % (0-1); EOSINOPHILS # (AUTO) 0.2 X10'3 (0-0.9); HEMATOCRIT 39.3 % (42.0-52.0); HEMOGLOBIN 13.4 g/dl (14.0-17.9); LYMPHOCYTES # (AUTO) 2.2 X10'3 (1.1-4.8); LYMPHOCYTES % (AUTO) 28.1 % (21-51); MEAN CORPUSCULAR HEMOGLOBIN 30.8 PG (27.0-31.0); MEAN CORPUSCULAR VOLUME 90.4 FL (78-98); MEAN PLATELET VOLUME 8.1 FL (7.4-10.4); MONOCYTES % (AUTO) 12.3 % (2-12); NEUTROPHILS # (AUTO) 4.4 X10'3 (1.8-7.7); NEUTROPHILS % (AUTO) 55.8 % (42-75); PLATELET COUNT 390 X10'3 (140-440); RED BLOOD COUNT 4.35 X10'6 (4.70-6.10); RED CELL DISTRIBUTION WIDTH 13.9 % (11.5-14.5); WHITE BLOOD COUNT 7.8 X10'3 (4.5-11.0)
[2021-12-19 09:46] LABS: ALANINE AMINOTRANSFERASE 33 U/L (12-78); ALBUMIN 2.8 G/DL (3.4-5.0); ALBUMIN/GLOBULIN RATIO 0.6 (1.1-1.5); ALKALINE PHOSPHATASE 97 IU/L (46-116); ANION GAP 10 (8-16); ASPARTATE AMINO TRANSFERASE 17 U/L (10-37); BILIRUBIN,TOTAL 0.2 MG/DL (0.1-1.0); BLOOD UREA NITROGEN 6 MG/DL (7-18); BUN/CREATININE RATIO 6.3 (5.4-32.0); CALCIUM 8.9 MG/DL (8.5-10.1); CHLORIDE 97 MMOL/L (99-107); CREATININE 0.95 MG/DL (0.60-1.10); GLUCOSE 122 MG/DL (70-104); POTASSIUM 4.2 MMOL/L (3.5-5.1); SODIUM 136 MMOL/L (135-145); TOTAL CARBON DIOXIDE 29.1 MMOL/L (24-32); TOTAL PROTEIN 7.5 G/DL (6.4-8.2); eGFR 87 ML/MIN
[2021-12-19 10:00] VITALS: BP 140/94
[2021-12-19] MEDS: morphine 2 MG/ML inj. syringe IV PRN (13:07)
[2021-12-19] MEDS: cyclobenzaprine 10mg tablet PO PRN (14:16)
--- NOTE | 2021-12-19 17:02 | NUR ---
PAGER ID: [phone] MESSAGE: RE: Ubaldo in [id number], pt has c/o worsening firmness/pain at right elbow from prior IV, area is red, swollen, please advise Nany [phone]
--- NOTE | 2021-12-19 18:10 | NUR ---
Problems reprioritized. Patient report given, questions answered & plan of care reviewed with
[2021-12-19] MEDS: oxyCODONE SR 10mg (sust. release) tab PO SCH (19:52)
[2021-12-20] MEDS: oxyCODONE/APAP 5-325mg tablet PO PRN ×4 (04:36→20:44)
[2021-12-20 06:00] VITALS: BP 117/64
--- NOTE | 2021-12-20 06:12 | NUR ---
Problems reprioritized. Patient report given, questions answered & plan of care reviewed with clifton Ayon.
--- NOTE | 2021-12-20 06:37 | NUR ---
Patient in room ORTHO 4022. I have received report from Marva and had the opportunity to ask questions and assume patient care.
[2021-12-20] MEDS: K and/or MAG REPLACEMENT MC SCH ×2 (08:00→20:51)
[2021-12-20] MEDS: nicotine 21mg patch - 24 hr TD SCH (08:00)
[2021-12-20] MEDS: atorvastatin 20mg tablet PO SCH (08:28)
[2021-12-20] MEDS: folic acid 1mg tablet PO SCH (08:28)
[2021-12-20] MEDS: ceFAZolin/D5W- 1GM premix 50 ML IV SCH ×2 (08:28→15:56)
[2021-12-20] MEDS: docusate sod 100mg capsule PO SCH ×2 (08:28→20:41)
[2021-12-20] MEDS: oxyCODONE SR 10mg (sust. release) tab PO SCH ×2 (08:29→20:41)
[2021-12-20] MEDS: pantoprazole 40mg Tablet.DR PO SCH (08:29)
[2021-12-20] MEDS: multivitamins, therapeutics tablet PO SCH (08:29)
[2021-12-20] MEDS: thiamine 100mg tablet PO SCH (08:29)
[2021-12-20] MEDS: heparin, porcine 5000 units/ml vial SQ SCH ×2 (08:30→20:42)
[2021-12-20] MEDS: lisinopril 5mg tablet PO SCH (08:36)
[2021-12-20 10:00] VITALS: BP 124/82
[2021-12-20 18:00] VITALS: BP 122/76
--- NOTE | 2021-12-20 18:32 | NUR ---
Problems reprioritized. Patient report given, questions answered & plan of care reviewed with Julita Schaeffer
--- NOTE | 2021-12-20 19:00 | NUR ---
Patient in room ORTHO 4022. I have received report from Nany GIPSON and had the opportunity to ask questions and assume patient care.
--- NOTE | 2021-12-20 20:02 | NUR ---
Agree with Physical Science Professor assessment done by Zabrina Schaeffer
[2021-12-20] MEDS: apixaban 5mg tablet PO SCH (20:42)
[2021-12-21] MEDS: oxyCODONE/APAP 5-325mg tablet PO PRN ×6 (00:16→21:05)
[2021-12-21] MEDS: ceFAZolin/D5W- 1GM premix 50 ML IV SCH ×2 (00:17→08:29)
[2021-12-21 06:00] VITALS: BP 110/72
--- NOTE | 2021-12-21 06:20 | NUR ---
Problems reprioritized. Patient report given, questions answered & plan of care reviewed with Nany GIPSON.
--- NOTE | 2021-12-21 06:29 | NUR ---
Patient in room ORTHO 4022. I have received report from [facility] and had the opportunity to ask questions and assume patient care.
[2021-12-21] MEDS: nicotine 21mg patch - 24 hr TD SCH (08:00)
[2021-12-21] MEDS: K and/or MAG REPLACEMENT MC SCH ×2 (08:00→20:00)
[2021-12-21] MEDS: atorvastatin 20mg tablet PO SCH (08:29)
[2021-12-21] MEDS: docusate sod 100mg capsule PO SCH ×2 (08:29→21:06)
[2021-12-21] MEDS: oxyCODONE SR 10mg (sust. release) tab PO SCH ×2 (08:29→21:06)
[2021-12-21] MEDS: folic acid 1mg tablet PO SCH (08:29)
[2021-12-21] MEDS: apixaban 5mg tablet PO SCH ×2 (08:29→21:06)
[2021-12-21] MEDS: thiamine 100mg tablet PO SCH (08:29)
[2021-12-21] MEDS: multivitamins, therapeutics tablet PO SCH (08:29)
[2021-12-21] MEDS: pantoprazole 40mg Tablet.DR PO SCH (08:29)
[2021-12-21] MEDS: lisinopril 5mg tablet PO SCH (08:30)
[2021-12-21] MEDS: heparin, porcine 5000 units/ml vial SQ SCH ×2 (08:30→21:06)
[2021-12-21 10:00] VITALS: BP 129/82
[2021-12-21] MEDS ORDERED: CYCL-1 PO (11:59)
[2021-12-21] MEDS ORDERED: APIX5TAB3 PO (11:59)
[2021-12-21] MEDS ORDERED: OXYC-150 PO (11:59)
[2021-12-21] MEDS ORDERED: OXYC20TA55 PO ×2 (11:59→12:12)
[2021-12-21] MEDS ORDERED: NICO-687 TD (11:59)
[2021-12-21] MEDS ORDERED: OXYC1TAB17 PO (12:12)
[2021-12-21 18:00] VITALS: BP 110/74
--- NOTE | 2021-12-21 18:18 | NUR ---
Problems reprioritized. Patient report given, questions answered & plan of care reviewed with Julita Schaeffer
--- NOTE | 2021-12-21 18:20 | NUR ---
Patient in room ORTHO 4013. I have received report from Nany GIPSON and had the opportunity to ask questions and assume patient care.
--- NOTE | 2021-12-21 18:20 | NUR ---
Patient in room ORTHO 4013. I have received report from Nany GIPSON and had the opportunity to ask questions and assume patient care.
[2021-12-21 22:00] VITALS: BP 128/80
[2021-12-21] MEDS: haloperidol 5mg tablet PO PRN (23:13)
[2021-12-22] MEDS: temazepam 15mg capsule PO PRN ×2 (00:52→23:19)
[2021-12-22] MEDS: oxyCODONE/APAP 5-325mg tablet PO PRN ×6 (00:52→23:19)
--- NOTE | 2021-12-22 05:57 | NUR ---
Physical assessment check and I agree with.
[2021-12-22 06:00] VITALS: BP 93/46
--- NOTE | 2021-12-22 06:50 | NUR ---
Problems reprioritized. Patient report given, questions answered & plan of care reviewed with Tatyana GIPSON.
[2021-12-22] MEDS: lisinopril 5mg tablet PO SCH (08:00)
[2021-12-22] MEDS: heparin, porcine 5000 units/ml vial SQ SCH ×2 (08:00→19:57)
[2021-12-22] MEDS: K and/or MAG REPLACEMENT MC SCH ×2 (08:00→19:52)
[2021-12-22] MEDS: nicotine 21mg patch - 24 hr TD SCH (08:00)
[2021-12-22 08:03] LABS: BASOPHILS # (AUTO) 0.3 X10'3 (0-0.2); EOSINOPHILS # (AUTO) 0.4 X10'3 (0-0.9); EOSINOPHILS % (AUTO) 3.1 % (0-6); MONOCYTES # (AUTO) 1.3 X10'3 (0-0.9)
[2021-12-22 08:06] LABS: HEMATOCRIT 37.8 % (42.0-52.0); HEMOGLOBIN 12.9 g/dl (14.0-17.9); LYMPHOCYTES # (AUTO) 2.8 X10'3 (1.1-4.8); MEAN CORPUSCULAR HEMOGLOBIN 30.9 PG (27.0-31.0); MEAN CORPUSCULAR HGB CONC 34.2 g/dL (33.0-36.5); MEAN CORPUSCULAR VOLUME 90.5 FL (78-98); MEAN PLATELET VOLUME 7.8 FL (7.4-10.4); MONOCYTES % (AUTO) 10.3 % (2-12); NEUTROPHILS # (AUTO) 8.1 X10'3 (1.8-7.7); NEUTROPHILS % (AUTO) 62.6 % (42-75); PLATELET COUNT 619 X10'3 (140-440); RED BLOOD COUNT 4.18 X10'6 (4.70-6.10); RED CELL DISTRIBUTION WIDTH 13.9 % (11.5-14.5)
[2021-12-22 08:45] LABS: ALANINE AMINOTRANSFERASE 23 U/L (12-78); ALBUMIN 2.7 G/DL (3.4-5.0); ALBUMIN/GLOBULIN RATIO 0.6 (1.1-1.5); ALKALINE PHOSPHATASE 99 IU/L (46-116); ANION GAP 6 (8-16); ASPARTATE AMINO TRANSFERASE 12 U/L (10-37); BILIRUBIN,TOTAL 0.1 MG/DL (0.1-1.0); BLOOD UREA NITROGEN 10 MG/DL (7-18); BUN/CREATININE RATIO 11.8 (5.4-32.0); CALCIUM 8.4 MG/DL (8.5-10.1); CHLORIDE 102 MMOL/L (99-107); CREATININE 0.85 MG/DL (0.60-1.10); GLUCOSE 91 MG/DL (70-104); SODIUM 136 MMOL/L (135-145); TOTAL PROTEIN 7.1 G/DL (6.4-8.2); eGFR > 90 ML/MIN
[2021-12-22 09:30] LABS: PLATELET ESTIMATE INCREASED; TOTAL CELLS COUNTED 100
[2021-12-22 09:31] LABS: TOXIC GRANULATION 1+
[2021-12-22] MEDS: folic acid 1mg tablet PO SCH (09:46)
[2021-12-22] MEDS: multivitamins, therapeutics tablet PO SCH (09:46)
[2021-12-22] MEDS: pantoprazole 40mg Tablet.DR PO SCH (09:46)
[2021-12-22] MEDS: atorvastatin 20mg tablet PO SCH (09:49)
[2021-12-22] MEDS: apixaban 5mg tablet PO SCH ×2 (09:49→19:56)
[2021-12-22] MEDS: docusate sod 100mg capsule PO SCH ×2 (09:50→19:56)
[2021-12-22] MEDS: oxyCODONE SR 10mg (sust. release) tab PO SCH ×2 (09:50→19:56)
[2021-12-22] MEDS: thiamine 100mg tablet PO SCH (09:50)
[2021-12-22 10:00] VITALS: BP 126/79
--- NOTE | 2021-12-22 10:00 | NUR ---
Dr Calloway stated pt's heparin can be discontinued as pt is on eliquis now.
--- NOTE | 2021-12-22 12:44 | NUR ---
Continued to work on pts d/c - spoke with Sol at [facility] - percet covered, oxy is not, may be able to get 7 days with more documentation but that is the max - pt wants to use coupons to pay for the full month. Sol will work on it and try to get best deal for pt. No oxy in stock today - it will be available Saturday - T/C to Marco Antonio at [facility] and updated him - they are happy to take him on Saturday when rx are ready. CM and hospitalist are aware. Addendum: 12/22/21 at 1249 by Mia ZUNIGA Amended: Links added.
[2021-12-22] MEDS: cyclobenzaprine 10mg tablet PO PRN (14:19)
[2021-12-22 18:00] VITALS: BP 98/58
--- NOTE | 2021-12-22 18:30 | NUR ---
Patient report given, questions answered & plan of care reviewed with Candace Osei RN.
[2021-12-22 22:00] VITALS: BP 133/81
[2021-12-23] MEDS: oxyCODONE/APAP 5-325mg tablet PO PRN ×6 (03:09→23:28)
[2021-12-23] MEDS: cyclobenzaprine 10mg tablet PO PRN ×3 (03:09→20:55)
[2021-12-23 06:00] VITALS: BP 106/40
--- NOTE | 2021-12-23 06:15 | NUR ---
Patient in room ORTHO 4013. I have received report from Candace Kirkland and had the opportunity to ask questions and assume patient care.
--- NOTE | 2021-12-23 06:25 | NUR ---
Problems reprioritized. Patient report given, questions answered & plan of care reviewed with LEONELA Ayon and SONDRA Hamilton.
[2021-12-23] MEDS: K and/or MAG REPLACEMENT MC SCH ×2 (08:00→19:29)
[2021-12-23] MEDS: nicotine 21mg patch - 24 hr TD SCH (08:00)
[2021-12-23] MEDS: pantoprazole 40mg Tablet.DR PO SCH (08:40)
[2021-12-23] MEDS: atorvastatin 20mg tablet PO SCH (08:40)
[2021-12-23] MEDS: thiamine 100mg tablet PO SCH (08:40)
[2021-12-23] MEDS: oxyCODONE SR 10mg (sust. release) tab PO SCH ×2 (08:40→19:27)
[2021-12-23] MEDS: apixaban 5mg tablet PO SCH ×2 (08:40→19:27)
[2021-12-23] MEDS: docusate sod 100mg capsule PO SCH ×2 (08:40→19:28)
[2021-12-23] MEDS: multivitamins, therapeutics tablet PO SCH (08:40)
[2021-12-23] MEDS: folic acid 1mg tablet PO SCH (08:40)
[2021-12-23] MEDS: lisinopril 5mg tablet PO SCH (08:41)
--- NOTE | 2021-12-23 09:41 | NUR ---
Reassessment: PO intake has significantly improved since last RD assessment, documented with mostly 100% PO intake since 12/19 meeting estimated nutrient needs. LBM 12/21. No further nutrition intervention implemented at this time. Will continue to follow. Recommendations: 1) Continue regular diet 2) Smoothies TIDWM 3) Continue routine Thiamine, Folic acid, and MVI in view of EtOH hx 4) Routine bowel care 5) Weekly scaled weights Addendum: 12/23/21 at [address] Amended: Links added.
[2021-12-23 10:11] VITALS: BP 139/86
[2021-12-23 18:00] VITALS: BP 118/62
--- NOTE | 2021-12-23 18:04 | NUR ---
Problems reprioritized. Patient report given, questions answered & plan of care reviewed with Candace Kirkland
[2021-12-23 22:00] VITALS: BP 127/72
[2021-12-24] MEDS: oxyCODONE/APAP 5-325mg tablet PO PRN ×5 (04:56→22:05)
[2021-12-24 06:00] VITALS: BP 127/64
--- NOTE | 2021-12-24 06:25 | NUR ---
Problems reprioritized. Patient report given, questions answered & plan of care reviewed with LEONELA Pettit and SONDRA Hamilton.
[2021-12-24 07:19] LABS: BASOPHILS # (AUTO) 0.2 X10'3 (0-0.2); LYMPHOCYTES % (AUTO) 24.8 % (21-51); MONOCYTES # (AUTO) 1.1 X10'3 (0-0.9); NEUTROPHILS # (AUTO) 5.5 X10'3 (1.8-7.7); NEUTROPHILS % (AUTO) 58.1 % (42-75)
[2021-12-24 07:21] LABS: BASOPHILS % (AUTO) 2.5 % (0-1); EOSINOPHILS # (AUTO) 0.2 X10'3 (0-0.9); EOSINOPHILS % (AUTO) 2.6 % (0-6); HEMATOCRIT 37.2 % (42.0-52.0); HEMOGLOBIN 12.9 g/dl (14.0-17.9); LYMPHOCYTES # (AUTO) 2.4 X10'3 (1.1-4.8); MEAN CORPUSCULAR HEMOGLOBIN 31.2 PG (27.0-31.0); MEAN CORPUSCULAR HGB CONC 34.8 g/dL (33.0-36.5); MEAN CORPUSCULAR VOLUME 89.8 FL (78-98); MEAN PLATELET VOLUME 7.3 FL (7.4-10.4); PLATELET COUNT 682 X10'3 (140-440); RED BLOOD COUNT 4.14 X10'6 (4.70-6.10); RED CELL DISTRIBUTION WIDTH 13.9 % (11.5-14.5); WHITE BLOOD COUNT 9.5 X10'3 (4.5-11.0)
--- NOTE | 2021-12-24 07:21 | NUR ---
Patient in room ORTHO 4013. I have received report from lionel GIPSON and had the opportunity to ask questions and assume patient care.
[2021-12-24 07:30] LABS: ALANINE AMINOTRANSFERASE 18 U/L (12-78); ALBUMIN 2.9 G/DL (3.4-5.0); ALBUMIN/GLOBULIN RATIO 0.6 (1.1-1.5); ALKALINE PHOSPHATASE 96 IU/L (46-116); ANION GAP 6 (8-16); ASPARTATE AMINO TRANSFERASE 15 U/L (10-37); BILIRUBIN,TOTAL 0.2 MG/DL (0.1-1.0); BLOOD UREA NITROGEN 12 MG/DL (7-18); BUN/CREATININE RATIO 12.8 (5.4-32.0); CALCIUM 8.7 MG/DL (8.5-10.1); CHLORIDE 103 MMOL/L (99-107); CREATININE 0.94 MG/DL (0.60-1.10); GLUCOSE 97 MG/DL (70-104); SODIUM 138 MMOL/L (135-145); TOTAL CARBON DIOXIDE 29.2 MMOL/L (24-32); TOTAL PROTEIN 7.4 G/DL (6.4-8.2); eGFR 88 ML/MIN
[2021-12-24] MEDS: K and/or MAG REPLACEMENT MC SCH ×2 (08:00→19:10)
[2021-12-24] MEDS: nicotine 21mg patch - 24 hr TD SCH (08:00)
[2021-12-24] MEDS: atorvastatin 20mg tablet PO SCH (08:04)
[2021-12-24] MEDS: multivitamins, therapeutics tablet PO SCH (08:04)
[2021-12-24] MEDS: apixaban 5mg tablet PO SCH ×2 (08:04→20:11)
[2021-12-24] MEDS: thiamine 100mg tablet PO SCH (08:04)
[2021-12-24] MEDS: folic acid 1mg tablet PO SCH (08:04)
[2021-12-24] MEDS: docusate sod 100mg capsule PO SCH ×2 (08:04→20:10)
[2021-12-24] MEDS: pantoprazole 40mg Tablet.DR PO SCH (08:05)
[2021-12-24] MEDS: lisinopril 5mg tablet PO SCH (08:05)
[2021-12-24] MEDS: oxyCODONE SR 10mg (sust. release) tab PO SCH ×2 (08:05→20:10)
[2021-12-24 08:50] LABS: TOTAL CELLS COUNTED 100
[2021-12-24 08:51] LABS: PLATELET ESTIMATE INCREASED; STOMATOCYTES FEW
--- NOTE | 2021-12-24 08:52 | NUR ---
Patient in room ORTHO 4013. I have received report from Candace GIPSON and had the opportunity to ask questions and assume patient care.
[2021-12-24 10:00] VITALS: BP 137/85
[2021-12-24] MEDS: cyclobenzaprine 10mg tablet PO PRN (16:14)
--- NOTE | 2021-12-24 17:53 | NUR ---
patient up and about in room, staff having to remind patient often to wear brace when up OOB. Patient compliant when reminded. Percocet given q4hrly for pain with good control. Seen by Dr Calloway is for possible DC in am.
[2021-12-24 18:00] VITALS: BP 123/71
--- NOTE | 2021-12-24 18:01 | NUR ---
MED SURG RN documentation: I have reviewed and agree with all interventions, assessments performed and documented by Emma GIPSON
[2021-12-24 22:00] VITALS: BP 134/78
[2021-12-25] MEDS: cyclobenzaprine 10mg tablet PO PRN ×2 (00:12→08:48)
[2021-12-25] MEDS: temazepam 15mg capsule PO PRN (00:16)
[2021-12-25] MEDS: oxyCODONE/APAP 5-325mg tablet PO PRN ×3 (02:10→10:40)
[2021-12-25 06:00] VITALS: BP 111/66
--- NOTE | 2021-12-25 06:34 | NUR ---
Problems reprioritized. Patient report given, questions answered & plan of care reviewed with LEONELA Ye.
[2021-12-25] MEDS: nicotine 21mg patch - 24 hr TD SCH (08:00)
[2021-12-25] MEDS: K and/or MAG REPLACEMENT MC SCH (08:00)
[2021-12-25] MEDS: pantoprazole 40mg Tablet.DR PO SCH (08:31)
[2021-12-25 08:32] VITALS: BP_SYST 111
[2021-12-25] MEDS: apixaban 5mg tablet PO SCH (08:32)
[2021-12-25] MEDS: atorvastatin 20mg tablet PO SCH (08:32)
[2021-12-25] MEDS: multivitamins, therapeutics tablet PO SCH (08:32)
[2021-12-25] MEDS: thiamine 100mg tablet PO SCH (08:32)
[2021-12-25] MEDS: docusate sod 100mg capsule PO SCH (08:32)
[2021-12-25] MEDS: folic acid 1mg tablet PO SCH (08:32)
[2021-12-25] MEDS: lisinopril 5mg tablet PO SCH (08:32)
[2021-12-25] MEDS: oxyCODONE SR 10mg (sust. release) tab PO SCH (08:33)
[2021-12-27] MEDS ORDERED: apixaban 5mg tablet PO SCH (20:00)
== END 2021-12-25 13:00 | disposition home or self-care (01) | DRG 422 ==
LOC: ER 09:04 → ED HOLD 21:31 → PCU 3S 23:12 → ORTHO 4S 12-18 15:55
PROVIDERS: ADMIT Family Medicine; ATTEND Family Medicine
DX: E86.0 Dehydration (principal); E87.2 Acidosis; I82.623 Acute embolism and thrombosis of deep veins of upper extremity, bilateral; R56.9 Unspecified convulsions; M48.54XA Collapsed vertebra, not elsewhere classified, thoracic region, initial encounter for fracture; E78.5 Hyperlipidemia, unspecified; E87.6 Hypokalemia; F10.239 Alcohol dependence with withdrawal, unspecified; L03.113 Cellulitis of right upper limb; F11.90 Opioid use, unspecified, uncomplicated; F15.90 Other stimulant use, unspecified, uncomplicated; F17.210 Nicotine dependence, cigarettes, uncomplicated; E87.1 Hypo-osmolality and hyponatremia; Y92.230 Patient room in hospital as the place of occurrence of the external cause; M54.9 Dorsalgia, unspecified; W18.39XA Other fall on same level, initial encounter; R82.4 Acetonuria; I10 Essential (primary) hypertension; S01.512A Laceration without foreign body of oral cavity, initial encounter; Z56.0 Unemployment, unspecified; Z79.01 Long term (current) use of anticoagulants; Z79.899 Other long term (current) drug therapy; Y93.89 Activity, other specified; Y99.8 Other external cause status; Z71.6 Tobacco abuse counseling
CPT/HCPCS: 36415; 36600; 70450; 71045; 72128; 72131; 72141; 72146; 72148; 80048; 80053; 80305; 80320; 81001; 82140; 82550; 82803; 82948; 83036; 83605; 83690; 83735; 83880; 84100; 84132; 84145; 84443; 85007; 85018; 85025; 85610; 85730; 87081; 93005; 93971; 94640; 94760; 96361; 96374; 97116; 97161; 97530; 97760; 99285; A6212; A6213; G0378; J0690; J1644; J2060; J2270; J2405; J3360; J3411; J3480; J3490; J7030; J7042; J7120

== ENCOUNTER 2022-01-01 17:56 | Emergency (ER) | payer MEDICAID ==
[~2022-01-01] VITALS: Ht 182.9 cm; Wt 89.0 kg
[~2022-01-01 17:56] MED LIST changes: +ALBU8.5H17 INH; +APIX5TAB3 PO; +CYCL-1 PO; +MULT-1085 PO; -MULT-1219 PO; +NICO-687 TD; -OMEP20CA15 PO; +OMEP20CA16 PO; +OXYC1TAB17 PO; +OXYC20TA55 PO; +THIA100T66 PO; -THIA50TA10 PO
[2022-01-01 18:35] VITALS: BP 152/85
== END 2022-01-01 20:01 | disposition left against medical advice (07) ==
LOC: ER 17:57
DX: M54.9 Dorsalgia, unspecified (principal); Z53.21 Procedure and treatment not carried out due to patient leaving prior to being seen by health care provider